=== PATIENT | male | born 2000 | race Caucasian/White ===

== ENCOUNTER 2018-07-07 09:13 | Emergency (ER) | payer BC ==
[~2018-07-07] VITALS: Ht 172.7 cm; Wt 54.4 kg
[~2018-07-07 09:13] MED LIST: BENADRYL ALLE12.5 M1 PO; BENADRYL25 MG PO; CLEOCIN HCL300 MG PO; MEDROLDOSEPACK PO; PENICILLIN VK500 MG; PEPCID AC20 M1 PO; PREDNISONE 20 M20 M1 PO
[2018-07-07 10:22] LABS: ABSOLUTE LYMPHOCYTES 1.2 thou/uL (0.8-5.3); ABSOLUTE MONOCYTES 0.2 thou/uL (0.0-1.2); ABSOLUTE NEUTROPHILS 1.7 thou/uL (1.6-8.1); BASOPHILS 0.5 %; EOSINOPHILS 0.6 %; HEMATOCRIT 45.1 % (42.0-52.0); HEMOGLOBIN 15.7 gm/dL (14.0-18.0); MCH 30.6 pg (26.0-34.0); MCHC 34.8 g/dL (28.0-37.0); MCV 88.1 fL (80.0-100.0); MPV 8.8 fl. (7.2-11.1); NUCLEATED RBCS 0 /100WBC; PLATELET COUNT* 168 thou/uL (150-400); POLYS 53.9 %; RBC 5.12 mil/uL (4.50-6.00); RDW-CV 12.4 % (10.5-14.5); WBC 3.1 thou/uL (4.0-11.0)
[2018-07-07 10:28] LABS: CALCIUM 8.4 mg/dL (8.5-10.1); CREATININE 0.9 mg/dL (0.6-1.3); POTASSIUM 3.7 mmol/L (3.5-5.1)
[2018-07-07 10:32] LABS: ALBUMIN 4.2 g/dL (3.4-5.0)
[2018-07-07 10:52] LABS: TOTAL BILIRUBIN 0.8 mg/dL (<0.1-1.0)
[2018-07-07 11:21] LABS: URINE BILIRUBIN NEGATIVE (Negative); URINE BLOOD NEGATIVE (Negative); URINE CLARITY CLEAR; URINE COLOR YELLOW; URINE GLUCOSE-RANDOM NEGATIVE (Negative); URINE KETONES NEGATIVE (Negative); URINE LEUKOCYTES NEGATIVE (Negative); URINE NITRITE NEGATIVE (Negative); URINE PROTEIN NEGATIVE (Negative); URINE UROBILINOGEN 0.2 E.U./dl (0.2-1.0)
[2018-07-07] MEDS ORDERED: CIPRO250 M1 PO (11:35)
[2018-07-07] MEDS ORDERED: PYRIDIUM200 MG PO (11:35)
[2018-07-07 12:07] VITALS: BP 150/86
== END 2018-07-07 12:12 | disposition home or self-care (01) ==
LOC: M.ERS 09:13
PROVIDERS: Personal Emergency Response Attendant
DX: R30.0 Dysuria (principal); Z91.010 Allergy to peanuts; Z91.018 Allergy to other foods

== ENCOUNTER 2018-08-31 22:30 | Emergency (ER) | payer BC ==
[~2018-08-31] VITALS: Ht 172.7 cm; Wt 59.0 kg
[~2018-08-31 22:30] MED LIST changes: +CIPRO250 M1 PO; +PYRIDIUM200 MG PO
[2018-08-31 23:20] VITALS: BP 144/80
== END 2018-08-31 23:21 | disposition home or self-care (01) ==
LOC: M.ERS 22:30
DX: H61.22 Impacted cerumen, left ear (principal)